=== PATIENT | female | born 1990 | race Caucasian/White ===

== ENCOUNTER → 2017-05-28 | Day surgery (SDC) | payer BC ==
--- NOTE | 2017-05-29 09:44 | OP ---
DATE OF OPERATION: 05/28/2017 PREOPERATIVE DIAGNOSIS: Left breast mass, 1 o'clock, 8 cm from the nipple. POSTOPERATIVE DIAGNOSIS: Left breast mass, 1 o'clock, 8 cm from the nipple. PROCEDURE: Left ultrasound-guided core biopsy with clip placement. ANESTHESIA: Local. ATTENDING SURGEON: Kareen Kirk MD ESTIMATED BLOOD LOSS: Minimal. COMPLICATIONS: None. PROCEDURE: Patient was made aware of the risks and benefits of the procedure and consented. She was placed in the supine position. Under sterile conditions with 1% lidocaine for local anesthesia, a small trinidad was made in the skin. Using a 13-gauge suction biopsy device via an inferolateral approach under ultrasound guidance, 6 cores were obtained and submitted to Pathology. Likewise, under ultrasound guidance a bow-tie clip was placed into the biopsy region. Well tolerated by patient. Steri-Strip and a sterile bandage were applied. We will contact her with results. KAREEN KIRK M.D. [id number]
--- NOTE | 2017-05-31 16:36 | PATH ---
Surgical Pathology Report Patient Name: PRAVIN MISHRA [facility]. Rec. #: [id number] /Age/Gender: 1990 (Age: 26) / F Account: [id number] Location: [facility] RADIOLOGY U Taken: 05/28/2017 Received: 05/28/2017 Reported: 05/31/2017 Physicians: Kareen Kirk M.D. Specimen(s) Received LEFT BREAST 1N8 CORE BIOPSY Clinical History Palpable mass Ultrasound findings: probably benign Final Diagnosis BREAST, LEFT,1:00, 8 CMFN, CORE BIOPSY: BENIGN BREAST TISSUE SHOWING STROMAL FIBROSIS. Electronically Signed Meri Kerns M.D. Gross Description Received in formalin labeled "left breast biopsy 1:00, 8 cmfn," is a 1.8 x 1.4 x 0.2 cm aggregate of multiple dawkins-yellow, irregular to cylindrical portions of fibroadipose tissue. The formalin is filtered and the specimen is entirely submitted in one cassette. Time to formalin fixation: < 1 minute Total formalin fixation time: Approximately 7 hours. 05/28/201705/28/2017
== END | disposition home or self-care (01) ==
LOC: FRADUS-SUR 14:51
PROVIDERS: ATTEND Surgery Surgical Oncology
PROC: 0HBU3ZX Excision of Left Breast, Percutaneous Approach, Diagnostic (ICD-10-PCS; principal; 2017-05-28)
DX: N60.32 Fibrosclerosis of left breast (principal); N63 Unspecified lump in breast
CPT/HCPCS: 19083; 87899; 88305-TC; A4648

== ENCOUNTER 2017-07-09 11:39 | Day surgery (SDC) | payer BC ==
--- NOTE | 2017-07-02 09:42 | HP ---
Admitting History and Physical - Primary Care Physician PCP: Kareen Kirk - Admission Chief Complaint: Left breast mass History of Present Illness: 26 year old premenapausal female who noted left breast mass upper outer quadrant. US showed 1.2x1.9x3.5 cm mass left breast at 1:00 consistent with fibroadenoma. Us core bx left breast showed stromal fibrosis on 05/28/2017. She is here for excision of mass. History Source: Patient Limitations to Obtaining History: No Limitations - Past Surgical History Past Surgical History: Yes: None - Smoking History Smoking history: Never smoked Have you smoked in the past 12 months: No Aproximately how many cigarettes per day: 0 - Alcohol/Substance Use Hx Alcohol Use: No Home Medications - Allergies Allergies/Adverse Reactions: Allergies Allergy/AdvReac Type Severity Reaction Status Date / Time amoxicillin [Amoxicillin] Allergy Verified 01/07/15 20:41 - Home Medications Home Medications: Ambulatory Orders Doxycycline Hyclate [Vibramycin -] 100 mg PO BID #14 cap 01/07/15 Family Disease History - Family Disease History Family Disease History: CA: Grandparent (mat GM and GGM breast ca 50's) Physical Examination Constitutional: Yes: Well Nourished, No Distress Breast(s): Yes: Other (symmetrical and diffusely nodular and dense 3.0x2.0 cm left breast mobile mass at 1N8) Problem List - Problems (1) Left breast mass Code(s): N63 - UNSPECIFIED LUMP IN BREAST Assessment/Plan Left breast excisional biopsy
[2017-07-06 14:16] VITALS: BMI 19.9
[2017-07-09] MEDS ORDERED: LIDOCAINE HCL 1%, 10 MG/ML (20ML VIAL) ONE (13:01)
[2017-07-09] MEDS ORDERED: PROMETHAZINE HCL 25 MG/1 ML VIAL IVPUSH PRN (13:07)
[2017-07-09] MEDS ORDERED: ONDANSETRON 4 MG/2 ML VIAL IVPUSH PRN (13:07)
[2017-07-09] MEDS ORDERED: oxyCODONE HCL 5 MG TABLET PO PRN (13:07)
[2017-07-09] MEDS ORDERED: LACTATED RINGERS SOLUTION 1,000 ML IV SCH (13:15)
[2017-07-09] MEDS ORDERED: LIDOCAINE HCL 1%, 10 MG/ML (20ML VIAL) INF ONE (13:33)
[2017-07-09] MEDS ORDERED: KETOROLAC TROMETHAMINE 30 MG/1 ML VIAL IVPUSH PRN (13:55)
[2017-07-09] MEDS ORDERED: ONDANSETRON 4 MG/2 ML VIAL IVPB PRN (13:55)
[2017-07-09] MEDS ORDERED: DEXTROSE 5%-0.45% SALINE 1,000 ML IV SCH (14:00)
[2017-07-09 16:06] VITALS: BP 100/56; PULSE 62; TEMP 98
--- NOTE | 2017-07-13 15:28 | PATH ---
Surgical Pathology Report Patient Name: PRAVIN MISHRA [facility]. Rec. #: [id number] /Age/Gender: 1990 (Age: 26) / F Account: [id number] Location: [facility] AMBULATORY Taken: 07/09/2017 Received: 07/09/2017 Reported: 07/13/2017 Physicians: Kareen Kirk M.D. Specimen(s) Received LEFT BREAST BIOPSY Clinical History Palpable mass Final Diagnosis BREAST, LEFT, EXCISIONAL BIOPSY: BENIGN BREAST TISSUE SHOWING STROMAL FIBROSIS AND PRIOR BIOPSY CHANGES. Electronically Signed Meri Kerns M.D. Gross Description Received in formalin, labeled "left breast biopsy" a 3.1 x 2.2 x 1.0 cm portion of dawkins fibrous nodular tissue. The specimen is inked black. Sectioning reveals light dawkins fibrous homogenous cut surface. There are no areas of hemorrhage or necrosis. The specimen is entirely submitted in eight cassettes. Time to formalin fixation: 5 minutes Total formalin fixation time: approximately 72 hours
== END 2017-07-09 15:40 | disposition home or self-care (01) ==
LOC: FASU 11:39
PROVIDERS: ATTEND Surgery Surgical Oncology
PROC: 0HBU0ZX Excision of Left Breast, Open Approach, Diagnostic (ICD-10-PCS; principal; 2017-07-09 13:12)
DX: D24.2 Benign neoplasm of left breast (principal)
CPT/HCPCS: 84703; 88305-TC; 94760

== ENCOUNTER 2017-08-26 21:30 | Emergency (ER) | payer BC ==
--- NOTE | 2017-08-26 21:40 | PDOC ---
Rapid Medical Evaluation Time Seen by Provider: 08/26/17 21:37 Medical Evaluation: Allergies Allergy/AdvReac Type Severity Reaction Status Date / Time amoxicillin [Amoxicillin] Allergy Verified 01/07/15 20:41 08/26/17 21:39 I have performed a brief in-person evaluation of this patient. The patient presents with a chief complaint of: rash to left 1st toe x 2 months. No improvement with triple abx and brief tx with lotrimin Pertinent physical exam findings:+ plaque/ inflammed area to 1st toe, ? fungal I have ordered the following: none The patient will proceed to the ED for further evaluation.
[2017-08-26 21:41] VITALS: BP 121/76; PULSE 69; TEMP 98.3; BMI 19.7
--- NOTE | 2017-08-26 21:52 | PDOC ---
History of Present Illness - General Chief Complaint: Wound Stated Complaint: WOUND Time Seen by Provider: 08/26/17 21:37 History Source: Patient Exam Limitations: No Limitations - History of Present Illness Initial Comments: 08/26/17 21:48 26-year-old female presents the ED with complaints of pruritic rash on the left first toe for the past 2 months unrelieved with triple antibiotic and a two- week course of Lotrimin. Patient initially thought it was a fungal rash was started with Motrin but when she did not improve she is being using triple antibiotic for the past month with no improvement. Patient denies any drainage, swelling, fever, or spreading of rash. 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 Timing/Duration: constant Severity: mild Associated Symptoms: reports: rash Past History - Travel Traveled outside of the country in the last 30 days: No - Past Medical History Allergies/Adverse Reactions: Allergies Allergy/AdvReac Type Severity Reaction Status Date / Time amoxicillin [Amoxicillin] Allergy Verified 08/26/17 21:41 Home Medications: Ambulatory Orders NK [No Known Home Medication] 08/26/17 Anemia: No Asthma: No Cancer: No Cardiac Disorders: No CVA: No COPD: No CHF: No Dementia: No Diabetes: No GI Disorders: No Disorders: No HTN: No Hypercholesterolemia: No Liver Disease: No Seizures: No Thyroid Disease: No - Immunization History Immunization Up to Date: Yes - Suicide/Smoking/Psychosocial Hx Smoking Status: No Smoking History: Never smoked Have you smoked in the past 12 months: No Number of Cigarettes Smoked Daily: 0 Information on smoking cessation initiated: No Hx Alcohol Use: No Drug/Substance Use Hx: No Substance Use Type: None Hx Substance Use Treatment: No Patient Lives Alone: No Lives with/in: parents Review of Systems - Review of Systems Able to Perform ROS?: Yes Constitutional: No: Symptoms Reported Integumentary: Yes: Pruritus, Rash *Physical Exam - Vital Signs Last Vital Signs Temp Pulse Resp BP Pulse Ox 98.3 F 69 17 121/76 100 08/26/17 21:38 08/26/17 21:38 08/26/17 21:38 08/26/17 21:38 08/26/17 21:38 - Physical Exam General Appearance: Yes: Nourished, Appropriately Dressed. No: Apparent Distress Integumentary: positive: Other (noted excoriated plaques to the web of left first toe and dorsal aspect of toe excluding the nail bed and cuticle) Medical Decision Making - Medical Decision Making 08/26/17 21:50 Patient here with pruritic inflamed rash to the left first toe. Patient on exam patient has athlete's foot. Patient be treated with topical antifungal. *DC/Admit/Observation/Transfer Diagnosis at time of Disposition: Tinea pedis of left foot - Discharge Dispostion Disposition: HOME Condition at time of disposition: Good - Referrals Referrals: Margarito Blackman MD [Primary Care Provider] - - Patient Instructions Printed Discharge Instructions: DI for Athlete's Foot Additional Instructions: Use please use topical cream as described for the next 2 weeks. Please do not mix with other creams or topicals. Please wear cotton socks and allow area to breathe as much as possible. Also dry feet completely and allow to air dry 15 minutes after showering and then may apply cream.
== END 2017-08-26 21:57 | disposition home or self-care (01) ==
LOC: JER 21:30 → SUPCPDRO 21:30 → JER 21:57
DX: B35.3 Tinea pedis (principal)
CPT/HCPCS: 99281-25

== ENCOUNTER 2017-09-28 18:26 | Emergency (ER) | payer BC ==
--- NOTE | 2017-09-28 18:36 | PDOC ---
Rapid Medical Evaluation Time Seen by Provider: 09/28/17 18:29 Medical Evaluation: Allergies Allergy/AdvReac Type Severity Reaction Status Date / Time amoxicillin [Amoxicillin] Allergy Verified 08/26/17 21:41 09/28/17 18:33 I have performed a brief in-person evaluation of this patient. The patient presents with a chief complaint of: R ankle swelling x 1 month. No trauma. No sig pmhx Pertinent physical exam findings: small area of swelling near lateral malleolus of R ankle w/ some erythema of unclear etiology, no significant pain I have ordered the following: nothing The patient will proceed to the ED for further evaluation.
[2017-09-28 18:37] VITALS: BP 117/66; PULSE 83; TEMP 98; BMI 19.7
--- NOTE | 2017-09-28 19:53 | PDOC ---
History of Present Illness <Shae Gómez - Last Filed: 09/28/17 20:23> - General History Source: Patient Exam Limitations: No Limitations - History of Present Illness Initial Comments: 09/28/17 20:33 The patient is a 26 year old female with no past medical history, presents to the emergency department with a complaint of bumps to her ankles. She reports one bump in the front of her left ankle and another bump laterally on her right ankle. She denies trauma, injury or falls. She reports the bumps have fluctuated in size. She reports that the right ankle bump is painful and more swollen than the left. She has been wearing Ugs boots. Denies the use of OTC medications. She has an appointment with her primary doctor on . <Fred Jordan - Last Filed: 09/28/17 20:34> - General Chief Complaint: Pain Stated Complaint: BUMP ON RT ANKLE Time Seen by Provider: 09/28/17 18:29 Past History - Past Medical History Anemia: No Asthma: No Cancer: No Cardiac Disorders: No CVA: No COPD: No CHF: No Dementia: No Diabetes: No GI Disorders: No Disorders: No HTN: No Hypercholesterolemia: No Liver Disease: No Seizures: No Thyroid Disease: No - Immunization History Immunization Up to Date: Yes - Suicide/Smoking/Psychosocial Hx Smoking Status: No Smoking History: Never smoked Have you smoked in the past 12 months: No Number of Cigarettes Smoked Daily: 0 Information on smoking cessation initiated: No Hx Alcohol Use: No Drug/Substance Use Hx: No Substance Use Type: None Hx Substance Use Treatment: No <Shae Gómez - Last Filed: 09/28/17 20:23> <Fred Jordan - Last Filed: 09/28/17 20:34> - Past Medical History Allergies/Adverse Reactions: Allergies Allergy/AdvReac Type Severity Reaction Status Date / Time amoxicillin [Amoxicillin] Allergy Verified 09/28/17 18:33 Home Medications: Ambulatory Orders Ibuprofen 800 mg PO TID #30 tablet 09/28/17 Review of Systems - Review of Systems Able to Perform ROS?: Yes Comments:: 09/28/17 20:33 CONSTITUTIONAL: Absent: fever, no chills, no fatigue MUSKULOSKELETAL: Present: Bumps on ankles , pain in right ankle Absent: back pain, no myalgia SKIN: Present: redness and swelling Is the patient limited Kazakh proficient: No <Fred Jordan - Last Filed: 09/28/17 20:34> *Physical Exam - Vital Signs Last Vital Signs Temp Pulse Resp BP Pulse Ox 98.0 F 83 18 117/66 100 09/28/17 18:35 09/28/17 18:35 09/28/17 18:35 09/28/17 18:35 09/28/17 18:35 <Shae Gómez - Last Filed: 09/28/17 20:23> - Vital Signs Last Vital Signs Temp Pulse Resp BP Pulse Ox 98.0 F 83 18 117/66 100 09/28/17 18:35 09/28/17 18:35 09/28/17 18:35 09/28/17 18:35 09/28/17 18:35 - Physical Exam Comments: 09/28/17 20:33 GENERAL: Well-appearing, well-nourished. No apparent distress. EXTREMITIES: Normal ROM in all four extremities. No gross deformities. There are two Lipomas. One on the front left ankle and one on the right lateral ankle which are mobile. SKIN: refer to Extremities exam, otherwise Warm, dry. No rash NEUROLOGICAL: No focal neurological deficits. <Fred Jordan - Last Filed: 09/28/17 20:34> *DC/Admit/Observation/Transfer - Discharge Dispostion Admit: No <Shae Gómez - Last Filed: 09/28/17 20:23> - Attestations Scribe Attestion: 09/28/17 20:33 Documentation prepared by Fred Jordan, acting as healthcare or medical for WILI Laguerre <Fred Jordan - Last Filed: 09/28/17 20:34> Diagnosis at time of Disposition: Lipoma of left lower extremity, Lipoma of right lower extremity - Discharge Dispostion Disposition: HOME Condition at time of disposition: Good - Prescriptions Prescriptions: Ibuprofen 800 mg PO TID #30 tablet - Referrals Referrals: Margarito Blackman MD [Primary Care Provider] - - Patient Instructions Printed Discharge Instructions: Lipoma Additional Instructions: You have bumps on your feet consistent with lipomas. Please keep your feet elevated when home. Take ibuprofen 800mg three times a day for the next week to help with swelling. You may also use heat to the areas. Avoid wearing tight fitting shoes for the next week. Please follow up with your primary care doctor this week. Return to the ED if you have worsening pain, numbness and tingling or weakness of the feet, changes in the way you walk, or any changes in your symptoms - Post Discharge Activity Forms/Work/School Notes: Back to Work
== END 2017-09-28 20:29 | disposition home or self-care (01) ==
LOC: JERFT 18:26
DX: D17.24 Benign lipomatous neoplasm of skin and subcutaneous tissue of left leg (principal); D17.23 Benign lipomatous neoplasm of skin and subcutaneous tissue of right leg
CPT/HCPCS: 99281-25

== ENCOUNTER 2018-10-10 09:55 | Emergency (ER) | payer BC ==
[2018-10-10 10:02] VITALS: BP 107/73; PULSE 77; TEMP 98.2; BMI 19.7
--- NOTE | 2018-10-10 10:21 | PDOC ---
History of Present Illness - General Chief Complaint: Pain, Acute Stated Complaint: bruises on legs Time Seen by Provider: 10/10/18 09:56 History Source: Patient Exam Limitations: No Limitations - History of Present Illness Initial Comments: 10/10/18 10:22 27 year old woman with history of anemia who presents with 3 days of waxing and waning, multiple raised lesions on her legs bilaterally that worsened last night but decreased this AM. The patient denies taking medications or using any topical creams. She denies fever, itchiness, or any other lesions. The patient admits to her daughter having hives several weeks ago that subsided with Benadryl. The patient denies recent travel, new detergent, allergy history, bug bites, anyone else in the home with similar symptoms. She has no other complaints at bedside. PMHX: as in HPI PSHX: L breast cyst removal (2017) Meds: OCP Allergies: amoxicillin Tob: none Etoh: none Rec drugs: none PCP: Yehuda Past History - Past Medical History Allergies/Adverse Reactions: Allergies Allergy/AdvReac Type Severity Reaction Status Date / Time amoxicillin [Amoxicillin] Allergy Verified 10/10/18 09:56 Home Medications: Ambulatory Orders NK [No Known Home Medication] 10/10/18 Anemia: No Asthma: No Cancer: No Cardiac Disorders: No CVA: No COPD: No CHF: No Dementia: No Diabetes: No GI Disorders: No Disorders: No HTN: No Hypercholesterolemia: No Liver Disease: No Seizures: No Thyroid Disease: No - Immunization History Immunization Up to Date: Yes - Suicide/Smoking/Psychosocial Hx Smoking Status: No Smoking History: Never smoked Have you smoked in the past 12 months: No Number of Cigarettes Smoked Daily: 0 Hx Alcohol Use: No Drug/Substance Use Hx: No Substance Use Type: None Hx Substance Use Treatment: No Review of Systems - Review of Systems Able to Perform ROS?: Yes Is the patient limited Pashto proficient: Yes Constitutional: No: Chills, Diaphoresis, Fever HEENTM: No: Eye Pain, Blurred Vision, Tearing, Nose Pain Respiratory: No: Cough, Orthopnea, Shortness of Breath Cardiac (ROS): No: Chest Pain ABD/GI: No: Constipated, Diarrhea, Nausea, Vomiting : No: Burning, Dysuria, Hematuria Integumentary: Yes: Change in Color, Erythema, Lesions. No: Bruising, Pruritus Neurological: No: Headache, Numbness, Tingling Endocrine: No: Excessive Sweating, Flushing Hematologic/Lymphatic: Yes: Anemia. No: Easy Bleeding, Easy Bruising, Bleeding Diathesis *Physical Exam - Physical Exam Comments: 10/10/18 10:37 GENERAL: Awake, alert, and fully oriented, in no acute distress HEAD: No signs of trauma, normocephalic, atraumatic EYES: EOMI, sclera anicteric, conjunctiva clear ENT: oropharynx clear without exudates. Moist mucosa NECK: Normal ROM, supple LUNGS: No distress, speaks full sentences, clear to auscultation bilaterally HEART: Regular rate and rhythm, normal S1 and S2, no murmurs, rubs or gallops, peripheral pulses normal and equal bilaterally. ABDOMEN: Soft, nontender, normoactive bowel sounds. No guarding, no rebound. No masses EXTREMITIES : Normal inspection, Normal range of motion, no edema. No clubbing or cyanosis. NEUROLOGICAL: Cranial nerves II through XII grossly intact. Normal speech, normal gait, no focal sensorimotor deficits SKIN: Warm, Dry, normal turgor, + two very slightly erythematous lesions on the L calf, mildly raised, nontender to touch *DC/Admit/Observation/Transfer Diagnosis at time of Disposition: Urticaria - Discharge Dispostion Disposition: HOME Condition at time of disposition: Stable Decision to Admit order: No - Referrals Referrals: Margarito Blackman MD [Primary Care Provider] - Lakia Bhat [Staff Physician] - - Patient Instructions Printed Discharge Instructions: DI for Hives Additional Instructions: You were seen in the ED for complaints of red lesions on the legs bilaterally. In the ED you were evaluated. There does not appear to be an acute need for immediate hospitalization. You are advised to follow up with your Primary Care Physician within 1 week. You were given a referral to Dermatology and are advised to follow up within 1 week. You are advised to use over the counter Sarah for symptom relief. Avoid using scented moisturizers, lotions, or perfumes or areas of the lesions. Return to the ED immediately if you experience worsening of the rash, spread of the lesions to the arms, torso, neck or face, fevers or difficulty breathing. - Post Discharge Activity
--- NOTE | 2018-10-10 10:34 | PDOC ---
Attending Attestation - Resident Resident Name: Brittany Bautista - ED Attending Attestation I have performed the following: I have examined & evaluated the patient, The case was reviewed & discussed with the resident, I agree w/resident's findings & plan, Exceptions are as noted - HPI HPI: 10/10/18 10:39 27 years old with three-day history of intermittent rash to lower extremities. No fever no chills no weight loss no recent illness no abnormal bleeding or bruising there noticeable not significantly painful tender or itchy daughter had somewhat similar symptoms resolved Insert my ROS statement - Physicial Exam PE: 10/10/18 10:41 Vitals: Triage Vital signs reviewed General Appearance: no acute distress, well nourished well developed, Head: Atraumatic, Throat: Posterior oropharynx without erythema, mucous membranes moist, Extremities: Full range of motion to all extremities, no cyanosis, clubbing, or edema Skin: Warm and dry, no rashes or lesions, no rash, no petechiae Psych: normal mood, normal affect - Medical Decision Making 10/10/18 10:40 At this time no rash present they were there last night and seemed to have resolved with no medication or intervention given waxing and waning of symptomatology differential diagnosis includes urticarial type reaction versus contact dermatitis to something patient's exposed at home Recommend conservative management Sarah, avoiding scented soaps and creams and minimizing exposure creams and lotions legs Patient provided with dermatology follow-up. Findings, need follow-up and strict return instructions discussed with patient.
[2018-10-10 11:06] LABS: HCG,QUALITATIVE URINE Negative
[2018-10-10 11:15] LABS: PH,URINE 5.5 (4.5-8); URINE APPEARANCE Clear; URINE BILIRUBIN Negative (NEGATIVE); URINE COLOR Yellow; URINE GLUCOSE (UA) Negative (NEGATIVE); URINE KETONE Negative (NEGATIVE); URINE LEUK ESTERASE Negative (NEGATIVE); URINE NITRITE Negative (NEGATIVE); URINE PROTEIN Trace (NEGATIVE); URINE UROBILINOGEN 0.2 (0.2-1.0)
[2018-10-10 11:58] LABS: EPI CELLS 1+ /HPF; URINE MUCUS 3+
== END 2018-10-10 10:41 | disposition home or self-care (01) ==
LOC: FER 09:55
DX: L50.9 Urticaria, unspecified (principal)
CPT/HCPCS: 81003; 81015; 84703; 99282-25

== ENCOUNTER 2023-11-03 17:20 | Emergency (ER) | payer BC ==
[2023-11-03 17:33] VITALS: BP 110/83; PULSE 72; RESP 18; TEMP 98.6; BMI 19.3
[2023-11-03] MEDS ORDERED: SODIUM CHLORIDE 1,000 ML IV STA (17:38)
[2023-11-03 17:54] LABS: HCG,QUALITATIVE URINE Negative
[2023-11-03 18:20] LABS: HEMATOCRIT 38.5 % (32.4-45.2); HEMOGLOBIN 13.3 G/dL (10.7-15.3); MCH 29.1 pg (25.7-33.7); MCHC 34.6 g/dl (32.0-36.0); MEAN CELL VOLUME 84.1 fl (80-96); MEAN PLT VOLUME 8.9 fl (7.5-11.1); PLATELET COUNT 269.8 10^3/uL (134-434); RBC 4.58 10^6/uL (3.60-5.2); RDW 14.4 % (11.6-15.6); WHITE BLOOD COUNT 10.4 10^3/uL (4.0-10.8)
[2023-11-03 18:36] LABS: PLATELET ESTIMATE ADEQUATE
[2023-11-03 18:37] LABS: ALBUMIN 4.6 g/dl (3.4-5.0); BILIRUBIN,TOTAL 0.2 mg/dl (0.2-1); CALCIUM 9.7 mg/dl (8.5-10.1); CREATININE 0.7 mg/dl (0.6-1.3); POTASSIUM 3.8 mmol/L (3.5-5.1); TOT PROT 7.2 g/dl (6.4-8.2)
== END 2023-11-03 19:10 | disposition home or self-care (01) ==
LOC: FER 17:20
PROC: 3E0337Z Introduction of Electrolytic and Water Balance Substance into Peripheral Vein, Percutaneous Approach (ICD-10-PCS; principal; 2023-11-03)
DX: R42 Dizziness and giddiness (principal); Z20.822 Contact with and (suspected) exposure to COVID-19
CPT/HCPCS: 0241U-QW; 36415; 80053; 81003; 84703; 85027; 87086; 93005; 99284-25